=== PATIENT | male | born 2000 | race Hispanic/Latino ===

== ENCOUNTER 2023-11-25 13:01 | Emergency (ER) | payer OTHER ==
[~2023-11-25] VITALS: Ht 162.6 cm; Wt 57.2 kg
[2023-11-25] MEDS: IBUPROFEN 800 MG TAB PO ONE (13:17)
[2023-11-25 13:27] VITALS: BP 116/68; PULSE 72; RESP 18; O2SAT 97
== END 2023-11-25 14:05 | disposition home or self-care (01) ==
LOC: EDH 13:01
DX: S90.32XA Contusion of left foot, initial encounter (principal); Z98.890 Other specified postprocedural states; W23.1XXA Caught, crushed, jammed, or pinched between stationary objects, initial encounter; Y93.89 Activity, other specified; Y92.89 Other specified places as the place of occurrence of the external cause; Y99.8 Other external cause status
CPT/HCPCS: 73630